=== PATIENT | male | born 1985 | race Two or more races ===

== ENCOUNTER 2018-01-13 15:56 | Emergency (ER) | payer SELFPAY ==
[~2018-01-13] VITALS: Ht 172.7 cm; Wt 84.4 kg
--- NOTE | 2018-01-13 16:10 | NUR ---
[facility] 878: PT. FOUND ON [address] PASSED OUT, SMELLING LIKE ETOH. PATIENT IS AWAKE AND ALERT. NOT IN DISTRESS.CONNECTED PT TO TELE MONITOR.SEEN BY
--- NOTE | 2018-01-13 18:22 | NUR ---
Patient discharged to home in stable condition. Written and verbal after care instructions given. Patient verbalizes understanding of instruction.
[2018-01-13 18:35] VITALS: BP 119/81
== END 2018-01-13 18:23 | disposition home or self-care (01) ==
LOC: ER 15:57
DX: F10.129 Alcohol abuse with intoxication, unspecified (principal); R40.4 Transient alteration of awareness; Y90.8 Blood alcohol level of 240 mg/100 ml or more
CPT/HCPCS: 36415; 70450; 82962; 99285; A4606; G0480; Z7610

== ENCOUNTER 2019-12-08 17:10 | Emergency (ER) | payer OTHER ==
[~2019-12-08] VITALS: Ht 175.3 cm; Wt 49.9 kg
[2019-12-08 18:52] LABS: BASOPHILS % (AUTO) 0.8 % (0.0-2.0); EOSINOPHILS % (AUTO) 2.5 % (0.0-6.0); HEMATOCRIT 42 % (39-51); HEMOGLOBIN 14.1 g/dL (13.5-17.5); LYMPHOCYTES # (AUTO) 1.1 /CMM (0.8-4.8); MEAN CORPUSCULAR HGB CONC 33 g/dl (31.0-36.0); MEAN CORPUSCULAR VOLUME 92 fL (80-96); MONOCYTES # (AUTO) 0.6 /CMM (0.1-1.30); MONOCYTES % (AUTO) 12.3 % (2.0-12.0); NEUTROPHILS # (AUTO) 2.9 /CMM (1.8-8.9); NEUTROPHILS % (AUTO) 60.4 % (43.0-81.0); PLATELET COUNT (AUTO) 324 /CMM (150-450); RED BLOOD CELL COUNT(AUTO) 4.62 MIL/uL (4.5-6.0); WHITE BLOOD COUNT (AUTO) 4.7 K/uL (4.3-11.0)
[2019-12-08] MEDS ORDERED: IV NS 0.9% 1,000 ML BAG IV ONE (19:00)
[2019-12-08 19:05] LABS: CARBON DIOXIDE 24 mmol/L (21-32); CHLORIDE 105 mmol/L (98-107); CREATININE 0.8 mg/dL (0.6-1.3); GLUCOSE 96 mg/dL (74-106); POTASSIUM 3.8 mmol/L (3.5-5.1); SODIUM SERUM 143 mmol/L (136-145); UREA NITROGEN, BLOOD 11 mg/dL (7-18)
--- NOTE | 2019-12-08 19:06 | NUR ---
PT REFUSED TO HAVE A CERVICAL COLLAR. EXPLAINED TO PT THE RISK AND BENEFITS OF USING A CERVICAL COLLAR BUT STILL REFUSED.
--- NOTE | 2019-12-08 19:07 | NUR ---
JEN FROM [facility]. TO ER BED 12. INTOXICATED, ADMITS TO DRINKING ALCOHOL. NOT IN RESPO DISTRESS, BREATHING EVEN AND UNLABORED. PT WAS CALLED IN BY THE TRANSLATOR DEAF BECAUSE PT WAS LYING DOWN OUTSIDE THE PHARMACY. NO VISUAL HEAD TRAUMA NOTED. MATT ORR AT THE BEDSIDE FOR EVAL.
--- NOTE | 2019-12-08 19:08 | NUR ---
IV LINE ESTABLISHED ON R HAND 18G. BLOOD DRAWN AND GIVEN TO TOWER HOIST OPERATOR AT BEDSIDE
[2019-12-08 19:13] LABS: ALANINE AMINOTRANSFERASE 113 U/L (12-78); ALBUMIN 3.9 g/dL (3.4-5.0); ALCOHOL, BLOOD 326 mg/dL (0-0); ALKALINE PHOSPHATASE 73 U/L (46-116); ASPARTATE AMINOTRANSFERASE 77 U/L (15-37); BILIRUBIN,DIRECT 0.1 mg/dL (0.0-0.2); BILIRUBIN,TOTAL 0.2 mg/dL (0.2-1.0); TOTAL PROTEIN, SERUM 7.4 g/dL (6.4-8.2)
[2019-12-08 19:18] LABS: ACETAMINOPHEN < 2 ug/ml (10-30); SALICYLATE < 2.8 mg/dL (2.8-20.0)
--- NOTE | 2019-12-08 21:30 | NUR ---
URINE COLECTED AND SENT TO LAB
[2019-12-08 21:47] LABS: APPEARANCE,URINE Clear (CLEAR); BILIRUBIN,URINE Negative (NEGATIVE); BLOOD, URINE Negative Ery/uL (NEGATIVE); COLOR,URINE Yellow (YELLOW); KETONES,URINE Negative (NEGATIVE); LEUKOCYTE ESTERASE ,URINE Negative (NEGATIVE); NITRITE, URINE Negative (NEGATIVE); PROTEIN,URINE Negative (NEGATIVE); UGLUCOSE Negative (NEGATIVE); UROBILINOGEN,URINE 0.2 EU/dL (0.2)
--- NOTE | 2019-12-08 23:55 | NUR ---
RECEIVED REPORT FROM TALITA LEE FOR CONTINUITY OF CARE. WILL CONTINUE TO MONITOR.
[2019-12-09 06:30] VITALS: BP 130/82
== END 2019-12-09 06:30 | disposition home or self-care (01) ==
LOC: ER 17:17
DX: F10.129 Alcohol abuse with intoxication, unspecified (principal); R51 Headache; M54.2 Cervicalgia; Y90.8 Blood alcohol level of 240 mg/100 ml or more; Z98.890 Other specified postprocedural states; Z60.2 Problems related to living alone
CPT/HCPCS: 36415; 70450; 72125; 80048; 80076; 80305; 80307; 80329; 81001; 85025; 96360; 99285; G0480; J7030; 81000-TC